=== PATIENT | female | born 1940 | race Caucasian/White ===

== ENCOUNTER 2024-12-03 13:35 | Emergency (ER) | payer MEDICARE ==
[2024-12-03 14:21] LABS: BASOPHIL % 0.4 % (0.1-1.2); Basophil (Absolute #) 0.03 x10^3/uL (0.01-0.08); Eosinophil (Absolute #) 0.07 x10^3/uL (0.04-0.36); Hematocrit 38.4 % (34.1-44.9); Hemoglobin 12.3 g/dL (11.2-15.7); IMMATURE GRAN # 0.04 x10^3u/L (0.001-0.031); IMMATURE GRAN % 0.6 % (0.001-0.429); Lymphocyte (Absolute #) 1.25 x10^3/uL (1.18-3.74); Mean Corpuscular Hemoglobin 30.1 pg (25.6-32.2); Mean Corpuscular Hgb Concent. 32.0 g/dL (32.2-35.5); Monocyte (Absolute #) 0.41 x10^3/uL (0.24-0.86); NUCLEATED RBC # 0.00 x10^3u/L (0.00-0.012); NUCLEATED RBC % 0.0 % (0.00-0.2); Platelet Count 261 x10^3/uL (182-369); Red Blood Count 4.08 x10^6/uL (3.93-5.22); White Blood Count 7.1 x10^3/uL (3.98-10.04)
[2024-12-03 14:32] VITALS: TEMP 97.7
[2024-12-03] MEDS ORDERED: Zofran 4 MG/2 ML VIAL ONE (14:39)
[2024-12-03] MEDS: Zofran 4 MG/2 ML VIAL IV ONE (14:44)
[2024-12-03 14:46] LABS: Calcium 8.9 mg/dL (8.4-10.2); Carbon Dioxide 26 mmol/L (22-30); Creatinine 1 0.74 mg/dL (0.52-1.04); EST GLOMERULAR FILTRATION RATE 80.7 ML/MIN; Glucose 105 mg/dL (74-106); Potassium 3.9 mmol/L (3.5-5.1); SGOT/AST 81 U/L (14-36); SGPT/ALT 138 U/L (0-35); TROPONIN < 0.012 ng/mL (0.000-0.033); Total Protein 7.1 g/dL (6.3-8.2)
[2024-12-03 15:06] VITALS: BP 170/75; RESP 20
--- NOTE | 2024-12-03 16:08 | XRAY ---
Indication: Pain. Diarrhea. Multiple contiguous axial images obtained through the abdomen and pelvis using 80 cc Isovue 370 contrast. Comparison: None Lung bases demonstrates minimal bilateral dependent atelectasis. No infiltrate or effusion. Heart not enlarged. Noncontrasted stomach and bowel loops appear nonobstructed. Mild diffuse fluid distended colon with fluid leveling favoring diarrhea. Descending colon and sigmoid demonstrates minimal circumferential wall thickening with minimal pericolonic stranding favoring colitis. No free fluid/air. Left lobe liver demonstrates a few cysts, largest 3.0 x 3.3 cm. Gallbladder is mildly distended with mild biliary prominence. Common bile duct measures 9 mm diameter without choledochal stone. Remaining pancreas, spleen, adrenal glands, kidneys, ureters, and bladder are unremarkable. Mild scattered aortoiliac calcifications. No AAA or pathologic retroperitoneal lymphadenopathy. Osseous structures intact with osteopenia, minimal/mild degenerative changes throughout spine, minimal levoscoliosis centered at L3, and mild degenerative changes both hips. Impression: 1. CT findings as detailed favoring noncomplicated descending and sigmoid colitis. 2. Mild distended gallbladder and biliary tree. Initial gallbladder sonogram may yield further information. 3. Chronic findings including hepatic cysts, arteriosclerotic disease, and chronic bony findings.
[2024-12-03 16:12] VITALS: PULSE 71; O2SAT 98
--- NOTE | 2024-12-03 16:31 | ERPHSYRPT ---
- History of Present Illness Time Seen by Provider: 12/03/24 13:40 Source: patient, family Exam Limitations: no limitations Patient Subjective Stated Complaint: Pt. states, "I have had diarrhea for a few weeks and I saw my doctor. I had some tests done but I haven't heard anything yet. Then today I went outside and all of the sudden I got dizzy and had really bad stomach pain. I ran inside and vomited a few times. It was just bile." Triage Nursing Assessment: Pt. ambulates to room without difficulty, A&Ox3, Skin pale, cool and dry. Resp. even unlabored. Pt. attempted to void but could not produce any urine. No edema noted. Physician History: Patient comes to the emergency room due to dizziness diarrhea feeling like she is dehydrated also had a vomiting episode today. Denies any chest pain shortness of breath had some abdominal cramping in the lower abdomen with some diarrhea which had no blood in it. Timing/Duration: week(s) Severity: mild Associated Symptoms: nausea, vomiting, No fever Allergies/Adverse Reactions: No Known Drug Allergies Allergy (Verified 06/03/23 08:16) Home Medications: Aspirin 81 mg PO DAILY 11/22/12 [History] Levothyroxine Sodium [Synthroid] 75 mcg PO DAILY 11/22/12 [History] Calcium Carbonate [Calcium] 100 mg PO UD 06/03/23 [History] Cholecalciferol (Vitamin D3) [Vitamin D] 1 tab PO UD 06/03/23 [History] Clopidogrel Bisulfate [Clopidogrel] 75 mg PO UD 06/03/23 [History] Escitalopram Oxalate [Lexapro] 5 mg PO UD 06/03/23 [History] Ezetimibe 10 mg [Zetia 10 MG] 10 mg PO UD 06/03/23 [History] Garlic 300 mg PO DAILY 06/03/23 [History] Multivitamin 1 tab PO DAILY 06/03/23 [History] Nitroglycerin 0.4 mg Tablet [Nitrostat 0.4 MG Tablet] 0.4 mg SL UD PRN 06/03/23 [History] Pravastatin Sodium 10 mg PO UD 06/03/23 [History] Ubidecarenone/Vit E Acet [Co Q-10 100 mg Softgel] 1 tab PO DAILY 06/03/23 [History] Amlodipine Besylate 5 mg [Norvasc 5 mg] 5 mg PO DAILY 12/03/24 [History] Hx Tetanus, Diphtheria Vaccination/Date Given: No Hx Influenza Vaccination/Date Given: No Hx Pneumococcal Vaccination/Date Given: Yes Travel Risk - International Travel Have you traveled outside of the country in past 3 weeks: No - Emerging Infectious Disease Are you exhibiting symptoms associated with any current EIDs: No - Review of Systems Constitutional: No Fever, No Chills Eyes: No Symptoms Ears, Nose, & Throat: No Symptoms Respiratory: No Cough, No Dyspnea Cardiac: No Chest Pain, No Edema, No Syncope Abdominal/Gastrointestinal: Nausea, Vomiting, Diarrhea Neurological: Dizziness, No Focal Weakness, No Gait Changes, No Headache Psychological: No Symptoms - Past Medical History Pertinent Past Medical History: Yes Neurological History: No Pertinent History ENT History: Cataracts Cardiac History: Coronary Artery Disease, High Cholesterol, Hypertension Respiratory History: No Pertinent History Endocrine Medical History: Hypothyroidism Musculoskeletal History: No Pertinent History GI Medical History: No Pertinent History History: No Pertinent History Psycho-Social History: No Pertinent History Female Reproductive Disorders: No Pertinent History - Past Surgical History Past Surgical History: Yes Neuro Surgical History: No Pertinent History Cardiac: Cardiac Catheterization, Cardiac Stent Respiratory: No Pertinent History Gastrointestinal: No Pertinent History Genitourinary: No Pertinent History Musculoskeletal: No Pertinent History Female Surgical History: Hysterectomy, Lumpectomy, Tubal Ligation Other Surgical History: 4 stints in past, 1 more stent placed last July and 3 more last September - Social History Smoking Status: Never smoker Exposure to second hand smoke: No Drug Use: none - Social Determinants of Health Will the patient participate in the screening: Declined to provide - Nursing Vital Signs Nursing Vital Signs: Initial Vital Signs Temperature 97.7 F 12/03/24 13:35 Pulse Rate 71 12/03/24 13:35 Respiratory Rate 18 12/03/24 13:35 Blood Pressure 158/89 12/03/24 13:35 O2 Sat by Pulse Oximetry 97 12/03/24 13:35 Pain Scale Pain Intensity 0 - Physical Exam General Appearance: no apparent distress, alert Eye Exam: PERRL/EOMI, eyes nml inspection Respiratory Exam: normal breath sounds, lungs clear, No respiratory distress Cardiovascular Exam: regular rate/rhythm, normal heart sounds, normal peripheral pulses Gastrointestinal/Abdomen Exam: soft, normal bowel sounds, No tenderness, No mass Extremity Exam: normal inspection, normal range of motion, pelvis stable Neurologic Exam: alert, oriented x 3, cooperative, normal mood/affect, nml cerebellar function, nml station & gait, sensation nml, No motor deficits Lymphatic Exam: No adenopathy SpO2 Interpretation: normal SpO2: 98 O2 Delivery: Room Air - CT Exams Abdomen/Pelvis CT Interpretation: appendicitis, No appendicitis Ordered Tests: Active Orders 24 hr Category Date Time Status EKG-ER Only STAT Care 12/03/24 14:15 Active ABDOMEN AND PELVIS W CONTRAST [CT] Stat Exams 12/03/24 14:15 Completed CBC W DIFF Stat Lab 12/03/24 14:10 Completed CMP Stat Lab 12/03/24 14:10 Completed LIPASE Stat Lab 12/03/24 14:10 Completed TROPONIN Stat Lab 12/03/24 14:10 Completed UA W/RFX UR CULTURE Stat Lab 12/03/24 14:15 Ordered Medication Summary Discontinued Medications Generic Name Dose Route Start Last Admin Trade Name Kassie PRN Reason Stop Dose Admin Sodium Chloride 1,000 mls @ 999 mls/hr 12/03/24 14:15 12/03/24 15:48 Sodium Chloride 0.9% 1000 Ml IV 12/03/24 15:15 Infused .Q1H1M STA Infusion Sodium Chloride Confirm 12/03/24 14:39 Sodium Chloride 0.9% 1000 Ml Administered 12/03/24 14:40 Dose 1,000 mls @ ud .ROUTE .STK-MED ONE Ondansetron HCl 4 mg 12/03/24 14:38 12/03/24 14:44 Ondansetron Hcl 4 Mg/2 Ml Vial IV 12/03/24 14:39 4 mg STAT ONE Administration Ondansetron HCl Confirm 12/03/24 14:39 Ondansetron Hcl 4 Mg/2 Ml Vial Administered 12/03/24 14:40 Dose 4 mg .ROUTE .STK-MED ONE Lab/Rad Data: Laboratory Result Diagrams 12/03/24 14:10 12/03/24 14:10 Laboratory Results 12/03/24 12/03/24 Range/Units 14:10 14:10 WBC 7.1 (3.98-10.04) x10^3/uL RBC 4.08 (3.93-5.22) x10^6/uL Hgb 12.3 (11.2-15.7) g/dL Hct 38.4 (34.1-44.9) % MCV 94.1 (79.4-94.8) fL MCH 30.1 (25.6-32.2) pg MCHC 32.0 L (32.2-35.5) g/dL RDW 12.7 (11.7-14.4) % Plt Count 261 (182-369) x10^3/uL MPV 10.0 (9.4-12.3) fL Gran % 74.5 H (34.0-71.1) % Immature Gran % (Auto) 0.6 H (0.001-0.429) % Nucleat RBC Rel Count 0.0 (0.00-0.2) % Eos # (Auto) 0.07 (0.04-0.36) x10^3/uL Immature Gran # (Auto) 0.04 H (0.001-0.031) x10^3u/L Absolute Lymphs (auto) 1.25 (1.18-3.74) x10^3/uL Absolute Monos (auto) 0.41 (0.24-0.86) x10^3/uL Absolute Nucleated RBC 0.00 (0.00-0.012) x10^3u/L Lymphocytes % 17.7 L (19.3-51.7) % Monocytes % 5.8 (4.7-12.5) % Eosinophils % 1.0 (0.7-5.8) % Basophils % 0.4 (0.1-1.2) % Absolute Granulocytes 5.25 (1.56-6.13) x10^3/uL Basophils # 0.03 (0.01-0.08) x10^3/uL Sodium 135 (135-145) mmol/L Potassium 3.9 (3.5-5.1) mmol/L Chloride 102 (98-107) mmol/L Carbon Dioxide 26 (22-30) mmol/L Anion Gap 11.0 (5-15) MEQ/L BUN 14 (7-17) mg/dL Creatinine 0.74 (0.52-1.04) mg/dL Estimated GFR 80.7 ML/MIN Glucose 105 (74-106) mg/dL Calcium 8.9 (8.4-10.2) mg/dL Total Bilirubin 0.40 (0.2-1.3) mg/dL AST 81 H (14-36) U/L ALT 138 H (0-35) U/L Alkaline Phosphatase 158 H (38-126) U/L Troponin I < 0.012 (0.000-0.033) ng/mL Serum Total Protein 7.1 (6.3-8.2) g/dL Albumin 4.3 (3.5-5.0) g/dL Lipase 35 (23-300) U/L - Progress Progress: improved Progress Note: 12/03/24 16:32 Patient was given fluids patient's was exam did not reveal any other findings as some dry mucous membranes. Patient been dealing with diarrhea for over 3 weeks the cultures of her stool are pending she did test negative for C. difficile. These test were done outpatient and the results were given to me by the patient. The patient has been doing with his diarrhea and today had vomiting episodes did not have a CT for which a CT was done today it came back showing that she has a ascending descending colitis. Patient has no fever no leukocytosis so I do not believe this is related to bacterial cause but the patient does have diarrhea and the colitis seen on CT therefore I will be doing a course of steroids to see if I can decrease the colitis inflammation and help the patient feel a lot better and patient be sent home on antiemetics as she did have a vomiting episode today - Departure Departure Disposition: Home Clinical Impression: Colitis Condition: Stable Critical Care Time: No Referrals: DEVON GUZMAN [Primary Care Provider, [facility]] - Follow up/PCP as directed Instructions: Viral gastroenteritis in adults Prescriptions: Ondansetron ODT 4 MG [Zofran Odt 4 mg] 4 mg PO Q6H PRN PRN #10 tablet PRN Reason: Vomiting Prednisone 10 mg [Deltasone 10 mg] 10 mg PO TID #12 tablet
== END 2024-12-03 16:52 | disposition home or self-care (01) ==
LOC: ED 13:35
DX: K52.9 Noninfective gastroenteritis and colitis, unspecified (principal); R42 Dizziness and giddiness; I10 Essential (primary) hypertension; Z79.02 Long term (current) use of antithrombotics/antiplatelets; Z79.899 Other long term (current) drug therapy